=== PATIENT | male | born 1935 | race Caucasian/White ===

== ENCOUNTER 2017-12-18 13:04 | Outpatient (CLI) | payer MEDICARE, OTHER ==
[~2017-12-18 13:04] MED LIST: BARIUM SULFATE 340 ML SUSP.RECON***PROCEDURE AREA ONLY**DONT ENTER PO ONE
== END 2017-12-18 23:59 | disposition home or self-care (01) ==
LOC: RAD 13:04
PROVIDERS: ATTEND Specialist
DX: R13.12 Dysphagia, oropharyngeal phase (principal); R47.1 Dysarthria and anarthria; G20 Parkinson's disease; I10 Essential (primary) hypertension
CPT/HCPCS: 74230

== ENCOUNTER 2018-05-21 14:29 | Outpatient (CLI) | payer MEDICARE, OTHER | END 2018-05-21 23:59 | disposition home or self-care (01) | LOC: RAD 14:29 | PROVIDERS: ATTEND Specialist | DX: R13.12 Dysphagia, oropharyngeal phase (principal); R47.1 Dysarthria and anarthria; G20 Parkinson's disease; I12.9 Hypertensive chronic kidney disease with stage 1 through stage 4 chronic kidney disease, or unspecified chronic kidney disease; E11.22 Type 2 diabetes mellitus with diabetic chronic kidney disease; N18.9 Chronic kidney disease, unspecified; Z98.890 Other specified postprocedural states; Z79.899 Other long term (current) drug therapy | CPT/HCPCS: 74230 ==

== ENCOUNTER 2022-09-16 04:05 | Inpatient (IN) | payer MEDICARE, OTHER ==
[~2022-09-16] VITALS: Ht 182.9 cm; Wt 76.8 kg
[2022-09-16 05:14] LABS: BASOPHILS % (AUTO) 0.1 % (0-1); EOSINOPHILS % (AUTO) 0 % (0-6); HEMOGLOBIN 12.5 g/dl (14.0-17.9); LYMPHOCYTES # (AUTO) 0.4 X10'3 (1.1-4.8); LYMPHOCYTES % (AUTO) 4.1 % (21-51); MEAN CORPUSCULAR HEMOGLOBIN 32.5 PG (27.0-31.0); MEAN CORPUSCULAR HGB CONC 33.7 g/dL (33.0-36.5); MEAN CORPUSCULAR VOLUME 96.4 FL (78-98); MEAN PLATELET VOLUME 8.7 FL (7.4-10.4); MONOCYTES # (AUTO) 0.8 X10'3 (0-0.9); MONOCYTES % (AUTO) 8.1 % (2-12); NEUTROPHILS # (AUTO) 8.7 X10'3 (1.8-7.7); NEUTROPHILS % (AUTO) 87.7 % (42-75); PLATELET COUNT 175 X10'3 (140-440); RED BLOOD COUNT 3.83 X10'6 (4.70-6.10); RED CELL DISTRIBUTION WIDTH 13.2 % (11.5-14.5); WHITE BLOOD COUNT 9.9 X10'3 (4.5-11.0)
[2022-09-16 05:21] LABS: ALANINE AMINOTRANSFERASE 7 U/L (12-78); ALBUMIN 2.9 G/DL (3.4-5.0); ALBUMIN/GLOBULIN RATIO 0.8 (1.1-1.5); ALKALINE PHOSPHATASE 74 IU/L (46-116); ANION GAP 9 (8-16); ASPARTATE AMINO TRANSFERASE 22 U/L (10-37); BILIRUBIN,TOTAL 0.5 MG/DL (0.1-1.0); BLOOD UREA NITROGEN 24 MG/DL (7-18); BUN/CREATININE RATIO 14.9 (10.0-20.0); CALCIUM 8.8 MG/DL (8.5-10.1); CHLORIDE 103 MMOL/L (99-107); CREATININE 1.61 MG/DL (0.60-1.10); GLUCOSE 227 MG/DL (70-104); MAGNESIUM 2.1 MG/DL (1.5-2.4); POTASSIUM 3.9 MMOL/L (3.5-5.1); SODIUM 137 MMOL/L (135-145); TOTAL CARBON DIOXIDE 25.5 MMOL/L (24-32); TOTAL PROTEIN 6.4 G/DL (6.4-8.2); eGFR 41 ML/MIN
[2022-09-16 05:29] LABS: PLATELET ESTIMATE NORMAL; TOTAL CELLS COUNTED 100
[2022-09-16 05:30] LABS: ANISOCYTOSIS FEW; ELLIPTOCYTES FEW; HYPERSEGMENTED NEUTROPHILS FEW
--- NOTE | 2022-09-16 05:50 | NUR ---
[facility]A [facility] [phone] NEIGHBOR WILL PICK PATIENT UP
[2022-09-16] MEDS ORDERED: normal saline 500ml IV soln 500 ML IV ONE (05:55)
[2022-09-16 06:46] LABS: CLARITY,URINE CLOUDY (Clear); COLOR,URINE YELLOW (Yellow); GLUCOSE, URINE >=1000 mg/dl (Neg); KETONES,URINE TRACE mg/dl (Neg); LEUKOCYTE ESTERASE ,URINE NEGATIVE (Neg); NITRITES, URINE POSITIVE (Neg); OCCULT BLOOD,URINE MODERATE (Neg); PROTEIN,URINE 30 mg/dl (Neg); UROBILINOGEN,URINE 0.2 E.U/dL (0.2-1.0)
--- NOTE | 2022-09-16 06:47 | NUR ---
AT BEDSIDE FOR RE-EVAL - PT COMPLAINING OF CHEST WALL/RIB CAGE PAIN ON THE LEFT THAT IS WORSE WITH DEEP INSPIRATION
[2022-09-16] MEDS ORDERED: carbidoba-levodopa 25-100mg tablet PO STA (06:51)
[2022-09-16] MEDS ORDERED: acetaminophen 325mg tablet PO ONE (06:55)
[2022-09-16 06:57] LABS: UA COLLECTION TYPE VOIDED
[2022-09-16 06:58] LABS: BACTERIA,URINE 3+ /HPF (Neg); MUCUS STRANDS FEW /LPF (Neg); SQUAMOUS EPITHELIAL CELL,UR FEW /LPF (FEW); WBC CLUMPS,URINE MANY /HPF (NEGATIVE); WBC,URINE 50-100 /HPF (0-4)
[2022-09-16 06:59] LABS: COARSE GRANULAR CAST 0-3 /LPF (NEGATIVE)
[2022-09-16 07:00] LABS: RBC,URINE 0-2 /HPF (0-2)
[2022-09-16] MEDS ORDERED: CefTRIAXone/D5W-Rocephin 1gm 50 ML IV ONE (07:10)
--- NOTE | 2022-09-16 07:38 | NUR ---
PT RESTING COMFORTABLY. NO OUTWARD S\S DISTRESS NOTED
[2022-09-16] MEDS ORDERED: CALC-854 PO (07:58)
[2022-09-16] MEDS ORDERED: LOSA100T58 PO (07:58)
[2022-09-16] MEDS ORDERED: MULT-1141 PO (07:58)
[2022-09-16] MEDS ORDERED: DESM0.2T29 PO (07:58)
[2022-09-16] MEDS ORDERED: FLUO30CR36 TOP (07:58)
[2022-09-16] MEDS ORDERED: ROSU10TA28 PO (07:58)
[2022-09-16] MEDS ORDERED: CARB1TAB60 PO (07:58)
[2022-09-16] MEDS ORDERED: ALFU10TA10 PO (07:58)
[2022-09-16] MEDS ORDERED: DAPA5TAB PO (07:58)
[2022-09-16] MEDS ORDERED: DOCU100C40 PO (07:58)
[2022-09-16] MEDS ORDERED: CARB-126 PO (07:58)
[2022-09-16] MEDS ORDERED: DET2LAC PO (07:58)
[2022-09-16] MEDS ORDERED: mag hydrox/Alum hydrox/simeth 30ml oral suspension PO PRN (08:20)
[2022-09-16] MEDS ORDERED: acetaminophen 325mg tablet PO PRN (08:20)
[2022-09-16] MEDS ORDERED: HYDROcodone/acetaminophen 5mg/325mg tablet PO PRN (08:20)
[2022-09-16] MEDS ORDERED: magnesium hydroxide 30ml (MOM) UD suspension PO PRN (08:20)
[2022-09-16] MEDS ORDERED: morphine 2 MG/ML inj. syringe IV PRN ×2 (08:20)
[2022-09-16] MEDS ORDERED: ondansetron/PF 4mg/2ml inj IV PRN (08:20)
[2022-09-16] MEDS: calcium carbonate/vitamin D3 tablet PO SCH (08:47)
[2022-09-16] MEDS: atorvastatin 20mg tablet PO SCH (08:48)
[2022-09-16] MEDS: tamsulosin 0.4mg capsule PO SCH (08:48)
[2022-09-16] MEDS: normal saline 1000ml 1,000 ML IV SCH ×2 (08:48→20:05)
[2022-09-16] MEDS: docusate sod 250mg capsule PO SCH ×2 (08:49→20:05)
[2022-09-16] MEDS: DAPAGLIFLOZIN 10MG TABLET PO SCH (08:53)
[2022-09-16 09:40] VITALS: BP 120/56
[2022-09-16] MEDS: losartan 50mg tablet PO SCH ×2 (13:11→20:07)
[2022-09-16] MEDS: carbidoba-levodopa 25-100mg tablet PO SCH ×3 (13:14→20:06)
[2022-09-16 18:00] VITALS: BP 120/61
--- NOTE | 2022-09-16 18:09 | NUR ---
Problems reprioritized. Patient report given, questions answered & plan of care reviewed with Russell VUONG.
--- NOTE | 2022-09-16 18:20 | NUR ---
Problems reprioritized. Patient report given, questions answered & plan of care reviewed with Krissy Medeiros RN
--- NOTE | 2022-09-16 18:21 | NUR ---
Patient in room [facility] 4015. I have received report from YEVGENIY Mitchell and had the opportunity to ask questions and assume patient care. Patient sitting up eating dinner, had no concerns. I will continue to monitor.
[2022-09-16] MEDS ORDERED: docusate sod 100mg capsule PO SCH ×2 (20:00)
[2022-09-16] MEDS: FLUOROURACIL TP SCH (20:00)
[2022-09-16] MEDS: acetaminophen 325mg tablet PO PRN (20:06)
[2022-09-16] MEDS: DESMOPRESSIN ACETATE 0.1 MG TABLET PO SCH (20:07)
[2022-09-16] MEDS ORDERED: carbidopa/levodopa 25/100mg CR tablet PO SCH (21:00)
[2022-09-16 22:00] VITALS: BP 131/74
[2022-09-17] MEDS: normal saline 1000ml 1,000 ML IV SCH ×2 (00:34→14:20)
[2022-09-17] MEDS: acetaminophen 325mg tablet PO PRN ×2 (02:40→13:36)
[2022-09-17 05:00] VITALS: BP 160/76
[2022-09-17 06:22] LABS: BASOPHILS % (AUTO) 0.3 % (0-1); EOSINOPHILS # (AUTO) 0.1 X10'3 (0-0.9); EOSINOPHILS % (AUTO) 1.7 % (0-6); HEMATOCRIT 36.2 % (42.0-52.0); LYMPHOCYTES # (AUTO) 0.5 X10'3 (1.1-4.8); LYMPHOCYTES % (AUTO) 8.3 % (21-51); MEAN CORPUSCULAR HEMOGLOBIN 32.1 PG (27.0-31.0); MEAN CORPUSCULAR HGB CONC 33.3 g/dL (33.0-36.5); MEAN CORPUSCULAR VOLUME 96.5 FL (78-98); MEAN PLATELET VOLUME 8.4 FL (7.4-10.4); MONOCYTES # (AUTO) 0.5 X10'3 (0-0.9); MONOCYTES % (AUTO) 7.8 % (2-12); NEUTROPHILS # (AUTO) 5.2 X10'3 (1.8-7.7); NEUTROPHILS % (AUTO) 81.9 % (42-75); PLATELET COUNT 169 X10'3 (140-440); RED BLOOD COUNT 3.75 X10'6 (4.70-6.10); RED CELL DISTRIBUTION WIDTH 13.5 % (11.5-14.5); WHITE BLOOD COUNT 6.4 X10'3 (4.5-11.0)
--- NOTE | 2022-09-17 06:27 | NUR ---
Problems reprioritized. Patient report given, questions answered & plan of care reviewed with YEVGENIY Mitchell.
[2022-09-17 07:00] LABS: ALBUMIN 2.6 G/DL (3.4-5.0); ANION GAP 11 (8-16); BLOOD UREA NITROGEN 22 MG/DL (7-18); BUN/CREATININE RATIO 17.2 (10.0-20.0); CALCIUM 8.6 MG/DL (8.5-10.1); CHLORIDE 106 MMOL/L (99-107); CREATININE 1.28 MG/DL (0.60-1.10); GLUCOSE 153 MG/DL (70-104); POTASSIUM 4.2 MMOL/L (3.5-5.1); SODIUM 139 MMOL/L (135-145); TOTAL CARBON DIOXIDE 22.5 MMOL/L (24-32); eGFR 53 ML/MIN
[2022-09-17 08:00] VITALS: BP_SYST 160; BP_SYST 168; BP_SYST 181; BP_DIAS 76; BP_DIAS 92; BP_DIAS 94
[2022-09-17] MEDS: FLUOROURACIL TP SCH ×2 (08:00→20:00)
[2022-09-17] MEDS: CefTRIAXone/D5W-Rocephin 1gm 50 ML IV SCH (08:45)
[2022-09-17] MEDS: tolterodine 2mg SR capsule (24hr) PO SCH (08:46)
[2022-09-17] MEDS: losartan 50mg tablet PO SCH ×2 (08:46→20:50)
[2022-09-17] MEDS: atorvastatin 20mg tablet PO SCH (08:46)
[2022-09-17] MEDS: carbidoba-levodopa 25-100mg tablet PO SCH ×4 (08:46→20:50)
[2022-09-17] MEDS: multivitamins, therapeutics tablet PO SCH (08:46)
[2022-09-17] MEDS: tamsulosin 0.4mg capsule PO SCH (08:47)
[2022-09-17] MEDS: enoxaparin 40mg/0.4ml syringe SUBCUT SCH (08:47)
[2022-09-17] MEDS: DAPAGLIFLOZIN 10MG TABLET PO SCH (08:52)
[2022-09-17] MEDS: docusate sod 250mg capsule PO SCH ×2 (08:52→20:00)
[2022-09-17] MEDS: calcium carbonate/vitamin D3 tablet PO SCH (08:52)
[2022-09-17 10:00] VITALS: BP 154/64
--- NOTE | 2022-09-17 14:16 | NUR ---
PRESSURE ULCER EDUCATION: DEFINITION: A pressure ulcer is an area of skin that breaks down when you stay in one position too long. The constant pressure against the skin reduces the blood flow to that area and the affected tissue dies. CAUSES: "Being bedridden or in a wheelchair "Fragile skin "Having a chronic condition, such as diabetes or vascular disease "Inability to move certain parts of your body without assistance "Older age "Incontinence of urine or stool SYMPTOMS: "A reddened area that DOES NOT turn white when pressed on - this can be the beginning of a pressure ulcer "A blister, deep sore or a crater - these can be advanced pressure ulcers FIRST AID: "Relieve the pressure on this area "Keep the area clean and dry "Call your primary doctor if you see any of the above symptoms "DO NOT massage the area "DO NOT use a donut shaped or ring shaped pillow- these actually interfere with the blood flow and cause complications PREVENTION: "Check for pressure ulcers everyday "Change position at least every two hours to relieve pressure "Use items that help relieve pressure- pillows, sheepskin, foam padding, and powders. "Keep skin clean and dry "Eat healthy well balanced meals "Exercise daily IF YOU SEE ANY OF THESE SYMPTOMS WHILE IN THE HOSPITAL - TELL YOUR NURSE IMMEDIATELY. IF YOU SEE ANY OF THESE SYMPTOMS WHILE AT HOME OR HAVE ANY QUESTIONS OR CONCERNS ABOUT PRESSURE ULCERS - CALL YOUR PRIMARY DOCTOR IMMEDIATELY. Addendum: 09/17/22 at 1417 by Raine Menezes LVN Amended: Links added.
[2022-09-17 18:30] VITALS: BP 133/65
[2022-09-17] MEDS: DESMOPRESSIN ACETATE 0.1 MG TABLET PO SCH (20:50)
[2022-09-17 22:00] VITALS: BP 163/76
[2022-09-18] MEDS: acetaminophen 325mg tablet PO PRN ×2 (00:01→08:29)
[2022-09-18] MEDS: normal saline 1000ml 1,000 ML IV SCH ×2 (00:20→10:20)
[2022-09-18 06:00] VITALS: BP 160/76
[2022-09-18 06:17] LABS: BASOPHILS % (AUTO) 0.4 % (0-1); EOSINOPHILS # (AUTO) 0.1 X10'3 (0-0.9); EOSINOPHILS % (AUTO) 1.4 % (0-6); HEMOGLOBIN 11.9 g/dl (14.0-17.9); LYMPHOCYTES # (AUTO) 0.8 X10'3 (1.1-4.8); LYMPHOCYTES % (AUTO) 10.4 % (21-51); MEAN CORPUSCULAR HEMOGLOBIN 32.1 PG (27.0-31.0); MEAN CORPUSCULAR HGB CONC 33.2 g/dL (33.0-36.5); MEAN CORPUSCULAR VOLUME 96.6 FL (78-98); MEAN PLATELET VOLUME 8.1 FL (7.4-10.4); MONOCYTES # (AUTO) 0.9 X10'3 (0-0.9); MONOCYTES % (AUTO) 12.1 % (2-12); NEUTROPHILS # (AUTO) 5.7 X10'3 (1.8-7.7); NEUTROPHILS % (AUTO) 75.7 % (42-75); PLATELET COUNT 175 X10'3 (140-440); RED BLOOD COUNT 3.72 X10'6 (4.70-6.10); RED CELL DISTRIBUTION WIDTH 13.6 % (11.5-14.5); WHITE BLOOD COUNT 7.5 X10'3 (4.5-11.0)
[2022-09-18 06:35] LABS: ALBUMIN 2.6 G/DL (3.4-5.0); ANION GAP 8 (8-16); BLOOD UREA NITROGEN 22 MG/DL (7-18); BUN/CREATININE RATIO 17.1 (10.0-20.0); CALCIUM 8.7 MG/DL (8.5-10.1); CHLORIDE 106 MMOL/L (99-107); CREATININE 1.29 MG/DL (0.60-1.10); GLUCOSE 144 MG/DL (70-104); POTASSIUM 3.8 MMOL/L (3.5-5.1); SODIUM 141 MMOL/L (135-145); TOTAL CARBON DIOXIDE 26.8 MMOL/L (24-32); eGFR 53 ML/MIN
[2022-09-18] MEDS: FLUOROURACIL TP SCH ×2 (08:00→20:00)
[2022-09-18] MEDS: carbidoba-levodopa 25-100mg tablet PO SCH ×4 (08:20→21:11)
[2022-09-18] MEDS: docusate sod 250mg capsule PO SCH ×2 (08:25→21:09)
[2022-09-18] MEDS: tolterodine 2mg SR capsule (24hr) PO SCH (08:27)
[2022-09-18] MEDS: DAPAGLIFLOZIN 10MG TABLET PO SCH (08:27)
[2022-09-18] MEDS: losartan 50mg tablet PO SCH ×2 (08:27→21:10)
[2022-09-18] MEDS: tamsulosin 0.4mg capsule PO SCH (08:28)
[2022-09-18] MEDS: atorvastatin 20mg tablet PO SCH (08:28)
[2022-09-18] MEDS: multivitamins, therapeutics tablet PO SCH (08:28)
[2022-09-18] MEDS: enoxaparin 40mg/0.4ml syringe SUBCUT SCH (08:36)
[2022-09-18] MEDS: calcium carbonate/vitamin D3 tablet PO SCH (08:36)
[2022-09-18] MEDS: CefTRIAXone/D5W-Rocephin 1gm 50 ML IV SCH (08:42)
[2022-09-18 10:00] VITALS: BP 99/60
[2022-09-18 11:32] VITALS: BP 160/76
[2022-09-18 18:00] VITALS: BP 168/70
--- NOTE | 2022-09-18 18:12 | NUR ---
Problems reprioritized. Patient report given, questions answered & plan of care reviewed with Cherry VUONG.
--- NOTE | 2022-09-18 18:25 | NUR ---
Patient in room [facility]TH[facility] 4015. I have received report from YEVGENIY Mitchell and had the opportunity to ask questions and assume patient care.
[2022-09-18 20:00] VITALS: BP_SYST 167; BP_SYST 168; BP_DIAS 70; BP_DIAS 76
[2022-09-18] MEDS: DESMOPRESSIN ACETATE 0.1 MG TABLET PO SCH (21:10)
[2022-09-18 22:00] VITALS: BP 165/75
[2022-09-19] MEDS: acetaminophen 325mg tablet PO PRN (02:54)
[2022-09-19 06:00] VITALS: BP 121/79
[2022-09-19 06:46] LABS: ALBUMIN 2.5 G/DL (3.4-5.0); ANION GAP 9 (8-16); BLOOD UREA NITROGEN 21 MG/DL (7-18); BUN/CREATININE RATIO 18.3 (10.0-20.0); CALCIUM 8.8 MG/DL (8.5-10.1); CHLORIDE 107 MMOL/L (99-107); CREATININE 1.15 MG/DL (0.60-1.10); GLUCOSE 145 MG/DL (70-104); POTASSIUM 3.7 MMOL/L (3.5-5.1); SODIUM 141 MMOL/L (135-145); TOTAL CARBON DIOXIDE 25.4 MMOL/L (24-32); eGFR 60 ML/MIN
[2022-09-19 06:47] LABS: BASOPHILS % (AUTO) 0.3 % (0-1); EOSINOPHILS # (AUTO) 0.2 X10'3 (0-0.9); EOSINOPHILS % (AUTO) 2.7 % (0-6); HEMATOCRIT 36.9 % (42.0-52.0); HEMOGLOBIN 12.4 g/dl (14.0-17.9); LYMPHOCYTES # (AUTO) 0.9 X10'3 (1.1-4.8); MEAN CORPUSCULAR HEMOGLOBIN 32.1 PG (27.0-31.0); MEAN CORPUSCULAR HGB CONC 33.6 g/dL (33.0-36.5); MEAN CORPUSCULAR VOLUME 95.7 FL (78-98); MEAN PLATELET VOLUME 8.5 FL (7.4-10.4); MONOCYTES # (AUTO) 0.7 X10'3 (0-0.9); NEUTROPHILS # (AUTO) 5.4 X10'3 (1.8-7.7); PLATELET COUNT 199 X10'3 (140-440); RED BLOOD COUNT 3.85 X10'6 (4.70-6.10); RED CELL DISTRIBUTION WIDTH 13.8 % (11.5-14.5); WHITE BLOOD COUNT 7.3 X10'3 (4.5-11.0)
--- NOTE | 2022-09-19 06:51 | NUR ---
Problems reprioritized. Patient report given, questions answered & plan of care reviewed with NINOSKA Aponte.
[2022-09-19] MEDS: FLUOROURACIL TP SCH (08:00)
[2022-09-19] MEDS: DAPAGLIFLOZIN 10MG TABLET PO SCH (08:21)
[2022-09-19] MEDS: multivitamins, therapeutics tablet PO SCH (08:21)
[2022-09-19] MEDS: calcium carbonate/vitamin D3 tablet PO SCH (08:21)
[2022-09-19] MEDS: tamsulosin 0.4mg capsule PO SCH (08:22)
[2022-09-19] MEDS: losartan 50mg tablet PO SCH (08:22)
[2022-09-19] MEDS: docusate sod 250mg capsule PO SCH (08:22)
[2022-09-19] MEDS: carbidoba-levodopa 25-100mg tablet PO SCH (08:22)
[2022-09-19] MEDS: tolterodine 2mg SR capsule (24hr) PO SCH (08:22)
[2022-09-19] MEDS: atorvastatin 20mg tablet PO SCH (08:22)
[2022-09-19] MEDS: enoxaparin 40mg/0.4ml syringe SUBCUT SCH (08:24)
[2022-09-19] MEDS: CefTRIAXone/D5W-Rocephin 1gm 50 ML IV SCH (08:48)
[2022-09-19 11:00] VITALS: BP 147/71
[2022-09-19 11:58] VITALS: BP 154/70
[2022-09-19 11:59] VITALS: BP 157/64
[2022-09-19 12:00] VITALS: BP 161/67
--- NOTE | 2022-09-19 13:58 | NUR ---
Patient picked up by [facility] to transport to [facility]. Belongings in hand, PIV D/Cd. Patient alert and appropriate at time of discharge.
--- NOTE | 2022-09-19 14:00 | NUR ---
I have reviewed and agree with interventions, assessments, and documentation by Fay Rodriguez LVN.
--- NOTE | 2022-09-19 14:07 | NUR ---
Report called in to Soraya at [facility]. Contact number provided for additional questions or concerns.
== END 2022-09-19 14:02 | DRG 641 ==
LOC: ER 04:05 → ED HOLD 08:23 → EDBEDREQ 08:40 → ORTHO 4S 09:30
PROVIDERS: ADMIT Internal Medicine; ATTEND Internal Medicine
DX: E86.0 Dehydration (principal); N39.0 Urinary tract infection, site not specified; N17.9 Acute kidney failure, unspecified; Z66 Do not resuscitate; E78.00 Pure hypercholesterolemia, unspecified; B96.20 Unspecified Escherichia coli [E. coli] as the cause of diseases classified elsewhere; S00.81XA Abrasion of other part of head, initial encounter; G89.29 Other chronic pain; M54.9 Dorsalgia, unspecified; W18.39XA Other fall on same level, initial encounter; Y93.01 Activity, walking, marching and hiking; Z60.2 Problems related to living alone; R07.81 Pleurodynia; R26.2 Difficulty in walking, not elsewhere classified; G20 Parkinson's disease; I10 Essential (primary) hypertension; S09.90XA Unspecified injury of head, initial encounter; Z79.899 Other long term (current) drug therapy; Z83.3 Family history of diabetes mellitus; Z87.442 Personal history of urinary calculi; Y92.098 Other place in other non-institutional residence as the place of occurrence of the external cause; Y99.8 Other external cause status
CPT/HCPCS: 36415; 70450; 71045; 71250; 80048; 80053; 81001; 83735; 83880; 84145; 85007; 85025; 87077; 87081; 87088; 87186; 93005; 97116; 97161; 97530; 97535; 99285; A4349; A6223; A6449; G0378; J0696; J1650; J7030; J7040

== ENCOUNTER 2023-07-15 08:47 | Emergency (ER) | payer MEDICARE, OTHER ==
[~2023-07-15] VITALS: Ht 182.9 cm; Wt 77.3 kg
[~2023-07-15 08:47] MED LIST changes: +ALFU10TA10 PO; -BARIUM SULFATE 340 ML SUSP.RECON***PROCEDURE AREA ONLY**DONT ENTER PO ONE; +CALC-854 PO; +CARB1TAB60 PO; +DAPA5TAB PO; +DESM0.2T29 PO; +DET2LAC PO; +DOCU100C40 PO; +FLUO30CR36 TOP; +LOSA100T58 PO; +MULT-1141 PO; +ROSU10TA28 PO
[2023-07-15 09:58] LABS: BASOPHILS % (AUTO) 0.3 % (0-1); EOSINOPHILS % (AUTO) 0.4 % (0-6); HEMATOCRIT 42.6 % (42.0-52.0); HEMOGLOBIN 13.9 g/dl (14.0-17.9); LYMPHOCYTES # (AUTO) 0.8 X10'3 (1.1-4.8); LYMPHOCYTES % (AUTO) 11.9 % (21-51); MEAN CORPUSCULAR HEMOGLOBIN 31.2 PG (27.0-31.0); MEAN CORPUSCULAR HGB CONC 32.7 g/dL (33.0-36.5); MEAN CORPUSCULAR VOLUME 95.5 FL (78-98); MEAN PLATELET VOLUME 7.9 FL (7.4-10.4); MONOCYTES # (AUTO) 0.8 X10'3 (0-0.9); MONOCYTES % (AUTO) 12.5 % (2-12); NEUTROPHILS # (AUTO) 4.8 X10'3 (1.8-7.7); NEUTROPHILS % (AUTO) 74.9 % (42-75); PLATELET COUNT 164 X10'3 (140-440); RED BLOOD COUNT 4.46 X10'6 (4.70-6.10); RED CELL DISTRIBUTION WIDTH 13.9 % (11.5-14.5); WHITE BLOOD COUNT 6.4 X10'3 (4.5-11.0)
[2023-07-15 10:10] LABS: ALANINE AMINOTRANSFERASE 10 U/L (12-78); ALBUMIN/GLOBULIN RATIO 0.8 (1.1-1.5); ALKALINE PHOSPHATASE 85 IU/L (46-116); ANION GAP 7 (8-16); ASPARTATE AMINO TRANSFERASE 24 U/L (10-37); BILIRUBIN,TOTAL 0.5 MG/DL (0.1-1.0); BLOOD UREA NITROGEN 32 MG/DL (7-18); BUN/CREATININE RATIO 22.1 (10.0-20.0); CALCIUM 9.3 MG/DL (8.5-10.1); CHLORIDE 102 MMOL/L (99-107); CREATININE 1.45 MG/DL (0.60-1.10); GLUCOSE 183 MG/DL (70-104); MAGNESIUM 2.3 MG/DL (1.5-2.4); POTASSIUM 4.5 MMOL/L (3.5-5.1); SODIUM 138 MMOL/L (135-145); TOTAL CARBON DIOXIDE 28.8 MMOL/L (24-32); eCRCL 38 ML/MIN; eGFR 46 ML/MIN
[2023-07-15 12:08] LABS: BILIRUBIN,URINE NEGATIVE (Neg); CLARITY,URINE CLOUDY (Clear); COLOR,URINE YELLOW (Yellow); GLUCOSE, URINE >=1000 mg/dl (Neg); KETONES,URINE NEGATIVE (Neg); LEUKOCYTE ESTERASE ,URINE MODERATE (Neg); NITRITES, URINE POSITIVE (Neg); OCCULT BLOOD,URINE MODERATE (Neg); PROTEIN,URINE 30 mg/dl (Neg); UROBILINOGEN,URINE 0.2 E.U/dL (0.2-1.0)
[2023-07-15 12:33] LABS: UA COLLECTION TYPE VOIDED
[2023-07-15 12:34] LABS: WBC CLUMPS,URINE MANY /HPF (NEGATIVE); WBC,URINE TNTC /HPF (0-4)
[2023-07-15 12:35] LABS: BACTERIA,URINE 3+ /HPF (Neg)
[2023-07-15 12:36] LABS: SQUAMOUS EPITHELIAL CELL,UR FEW /LPF (FEW)
[2023-07-15] MEDS ORDERED: NITR100C6 PO (13:06)
[2023-07-15] MEDS: CefTRIAXone/D5W-Rocephin 1gm 50 ML IV STA (13:33)
[2023-07-15 14:41] VITALS: BP 150/79; PULSE 52; RESP 17; O2SAT 97
[2023-07-15 15:53] VITALS: TEMP 98
== END 2023-07-15 15:55 | disposition home or self-care (01) ==
LOC: ER 08:48
DX: N39.0 Urinary tract infection, site not specified (principal); I10 Essential (primary) hypertension; E78.00 Pure hypercholesterolemia, unspecified; Z79.899 Other long term (current) drug therapy
CPT/HCPCS: 36415; 71045; 80053; 81001; 83605; 83735; 84145; 85025; 87040; 87088; 87186; 93005; 96365; 99285; J0696; 87077

== ENCOUNTER 2023-11-07 22:21 | Emergency (ER) | payer MEDICARE, OTHER ==
[~2023-11-07] VITALS: Ht 365.8 cm; Wt 74.0 kg
[~2023-11-07 22:21] MED LIST changes: +NITR100C6 PO
[2023-11-07 22:53] VITALS: TEMP 98.1
[2023-11-07] MEDS ORDERED: NYSPWD TP (23:50)
[2023-11-07] MEDS ORDERED: CEPH250T PO (23:50)
[2023-11-07] MEDS ORDERED: VITS42.53 TOP (23:50)
[2023-11-07] MEDS: fluconazole 100mg tablet PO ONE (23:56)
[2023-11-07] MEDS: cephalexin 250mg capsule PO ONE (23:56)
[2023-11-07] MEDS: NYSTATIN CREAM - 30GM TUBE TP ONE (23:56)
[2023-11-08 01:03] VITALS: BP 155/71; PULSE 63; RESP 16; O2SAT 94
== END 2023-11-08 00:49 | disposition home or self-care (01) ==
LOC: ER 22:21
DX: B35.6 Tinea cruris (principal); R32 Unspecified urinary incontinence; E78.00 Pure hypercholesterolemia, unspecified; I10 Essential (primary) hypertension; G89.29 Other chronic pain; M54.9 Dorsalgia, unspecified; Z85.89 Personal history of malignant neoplasm of other organs and systems; Z87.442 Personal history of urinary calculi; Z79.2 Long term (current) use of antibiotics; Z79.899 Other long term (current) drug therapy
CPT/HCPCS: 99284

== ENCOUNTER 2023-11-24 04:58 | Emergency (ER) | payer MEDICARE, OTHER ==
[~2023-11-24] VITALS: Ht 182.9 cm; Wt 81.8 kg
[~2023-11-24 04:58] MED LIST changes: -ALFU10TA10 PO; +ALFU10TA47 PO; +NYSPWD TP; -ROSU10TA28 PO; +ROSU10TA72 PO; +VITS42.53 TOP
[2023-11-24 05:12] VITALS: TEMP 97.7
[2023-11-24] MEDS: normal saline 1000ml 1,000 ML IV ONE (05:24)
[2023-11-24 06:10] LABS: BASOPHILS % (AUTO) 0.3 % (0-1); EOSINOPHILS # (AUTO) 0.1 X10'3 (0-0.9); EOSINOPHILS % (AUTO) 0.8 % (0-6); HEMATOCRIT 34.9 % (42.0-52.0); HEMOGLOBIN 11.4 g/dl (14.0-17.9); LYMPHOCYTES # (AUTO) 0.5 X10'3 (1.1-4.8); LYMPHOCYTES % (AUTO) 4.6 % (21-51); MEAN CORPUSCULAR HEMOGLOBIN 30.9 PG (27.0-31.0); MEAN CORPUSCULAR HGB CONC 32.7 g/dL (33.0-36.5); MEAN CORPUSCULAR VOLUME 94.6 FL (78-98); MEAN PLATELET VOLUME 7.6 FL (7.4-10.4); MONOCYTES # (AUTO) 0.7 X10'3 (0-0.9); MONOCYTES % (AUTO) 6.8 % (2-12); NEUTROPHILS # (AUTO) 8.7 X10'3 (1.8-7.7); NEUTROPHILS % (AUTO) 87.5 % (42-75); PLATELET COUNT 183 X10'3 (140-440); RED BLOOD COUNT 3.69 X10'6 (4.70-6.10); RED CELL DISTRIBUTION WIDTH 13.9 % (11.5-14.5); WHITE BLOOD COUNT 9.9 X10'3 (4.5-11.0)
[2023-11-24 06:23] LABS: ALANINE AMINOTRANSFERASE 10 U/L (12-78); ALBUMIN 3.1 G/DL (3.4-5.0); ALBUMIN/GLOBULIN RATIO 0.9 (1.1-1.5); ALKALINE PHOSPHATASE 109 IU/L (46-116); ANION GAP 6 (8-16); ASPARTATE AMINO TRANSFERASE 13 U/L (10-37); BILIRUBIN,TOTAL 0.8 MG/DL (0.1-1.0); BLOOD UREA NITROGEN 27 MG/DL (7-18); CALCIUM 8.8 MG/DL (8.5-10.1); CHLORIDE 106 MMOL/L (99-107); CREATININE 1.59 MG/DL (0.60-1.10); GLUCOSE 219 MG/DL (70-104); LIPASE 47 U/L (16-77); SODIUM 139 MMOL/L (135-145); TOTAL CARBON DIOXIDE 27.4 MMOL/L (24-32); TOTAL PROTEIN 6.6 G/DL (6.4-8.2); eCRCL 35 ML/MIN; eGFR 41 ML/MIN
[2023-11-24 09:07] VITALS: BP 160/81; PULSE 72; RESP 12; O2SAT 97
== END 2023-11-24 09:05 | disposition home or self-care (01) ==
LOC: ER 04:59
DX: R19.7 Diarrhea, unspecified (principal); I10 Essential (primary) hypertension; Z79.899 Other long term (current) drug therapy
CPT/HCPCS: 36415; 80053; 83690; 85025; 96360; 99283; J7030